=== PATIENT | female | born 1985 | race Two or more races ===

== ENCOUNTER 2020-03-28 15:16 | Emergency (ER) | payer SELFPAY ==
[~2020-03-28] VITALS: Ht 175.3 cm; Wt 61.0 kg
[2020-03-28] MEDS ORDERED: LORAZEPAM 1MG TABLET PO ONE (16:00)
[2020-03-28 17:33] VITALS: BP 138/87
== END 2020-03-28 17:35 | disposition home or self-care (01) ==
LOC: ER 15:16
DX: R07.89 Other chest pain (principal); F41.9 Anxiety disorder, unspecified; R00.2 Palpitations; R06.00 Dyspnea, unspecified; R06.4 Hyperventilation; Z88.0 Allergy status to penicillin
CPT/HCPCS: 71045; 81025; 82962; 93005; 99283